=== PATIENT | male | born 1990 | race Caucasian/White ===

== ENCOUNTER 2021-06-21 09:41 | Day surgery (SDC) | payer OTHER ==
[~2021-06-21] VITALS: Ht 172.7 cm; Wt 60.6 kg
[2021-06-21 10:28] VITALS: BP 135/78; PULSE 104; TEMP 98
[2021-06-21] MEDS ORDERED: PROTONIX 40MG T40 MG PO (10:36)
[2021-06-21] MEDS ORDERED: REGLAN 10MG10 MG/TAB PO (10:37)
[2021-06-21 11:50] VITALS: BP 118/83; PULSE 73
--- NOTE | 2021-06-21 11:50 | NUR ---
PATIENT RETURNS TO ROOM 5 PER CART AND IS AROUSES TO VERBAL STIMULI. IV FLUIDS INFUSING. SIDERAILS UP X2 AND CALL LIGHT IN REACH. MOTHER IN ROOM. ALLOWED TO REST. OFFERED SNACK AND PATIENT REFUSES.
[2021-06-21 12:05] VITALS: BP 117/79; PULSE 78
--- NOTE | 2021-06-21 12:05 | NUR ---
RESTING WITH EYES CLOSED AND NOT DISTURBED.
[2021-06-21 12:20] VITALS: BP 107/74; PULSE 89
--- NOTE | 2021-06-21 12:20 | NUR ---
RESTING AND DENIES PAIN OR NAUSEA. STATES THAT HE IS READY TO GO HOME. STATES THAT HE WILL EAT AT HOME.
--- NOTE | 2021-06-21 12:28 | NUR ---
IV DISCONTINUED AND SITE IS FREE OF REDNESS OR SWELLING. DRESSES SELF.
--- NOTE | 2021-06-21 12:35 | NUR ---
DISMISSAL INSTRUCTIONS GIVEN AND VOICES UNDERSTANDING OF THESE.
--- NOTE | 2021-06-21 12:41 | NUR ---
DISMISSED TO HOME DRIVEN BY MOTHER AND AMBULATED TO THE FRONT DOOR. REFUSED TO RIDE IN WHEELCHAIR. STATES IT IS TO UNCOMFORTABLE TO SIT. TOLERATED ACTIVITY WELL.
== END 2021-06-21 12:41 | disposition home or self-care (01) ==
LOC: SDCO 09:41
DX: R19.7 Diarrhea, unspecified (principal); R10.84 Generalized abdominal pain; R11.2 Nausea with vomiting, unspecified; R93.5 Abnormal findings on diagnostic imaging of other abdominal regions, including retroperitoneum; R19.4 Change in bowel habit; Z79.899 Other long term (current) drug therapy
CPT/HCPCS: J2704; J3010; J7120